=== PATIENT | female | born 1995 | race Caucasian/White ===

== ENCOUNTER 2021-07-27 22:22 | Day surgery (SDC) | payer BC ==
[2021-07-27] MEDS ORDERED: hydrALAZINE 20 MG/ML VIAL SLOW IVP PRN (22:38)
[2021-07-27 23:08] VITALS: BMI 39.6
[2021-07-27 23:27] LABS: #Monocytes 0.5 10x3/uL (0.0-1.1); #Neutrophils 4.2 10x3/uL (1.5-8.4); %Basophils 0.5 % (0.0-2.0); %Eosinophils 0.4 % (0.0-6.0); %Lymphocytes 34.8 % (18.0-47.0); %Monocytes 6.7 % (0.0-10.0); %Neutrophils 57.3 % (40.0-75.0); Hemoglobin 10.7 g/dL (12.0-15.5); Mean Corpuscular HGB CONC 32.1 g/dL (32.0-36.0); Mean Corpuscular Hemoglobin 25.3 pg (27.0-33.0); Mean Corpuscular Volume 78.7 fl (81.6-98.3); Mean Platelet Volume 11.9 fl (7.4-10.4); Platelet Count 233 10x3/uL (150-450); RBC Distribution Width 13.1 % (11.5-14.5); Red Blood Cell (RBC) Count 4.23 10x6/uL (3.90-5.03); White Blood Cell (WBC) Count 7.3 10x3/uL (3.5-10.5)
[2021-07-27 23:35] LABS: ALT (SGPT) 7 U/L (8-55); AST (SGOT) 14 U/L (5-34); Albumin 3.2 g/dL (3.5-5.0); Alkaline Phosphatase 110 U/L (40-110); Anion Gap 14 mmol/L (10-20); BUN (Urea Nitrogen) 10 mg/dL (7.0-18.7); Bilirubin, Total 0.3 mg/dL (0.2-1.2); Calc. Creatinine Clearance 205 mL/min (70-130); Calcium 8.8 mg/dL (7.8-10.44); Carbon Dioxide 19 mmol/L (22-29); Chloride 107 mmol/L (98-107); Globulin 2.9 g/dL (2.4-3.5); Glucose 90 mg/dL (70-105); Potassium 4.1 mmol/L (3.5-5.1); Protein, Total 6.1 g/dL (6.0-8.3); Sodium 136 mmol/L (136-145)
== END 2021-07-28 00:20 | disposition home or self-care (01) ==
LOC: CSHLD/OP 22:22
PROVIDERS: ATTEND Obstetrics & Gynecology
DX: O99.891 Other specified diseases and conditions complicating pregnancy (principal); R03.0 Elevated blood-pressure reading, without diagnosis of hypertension; M79.89 Other specified soft tissue disorders; Z3A.35 35 weeks gestation of pregnancy; Z91.040 Latex allergy status
CPT/HCPCS: 80053; 82570; 84156; 85025; 99283

== ENCOUNTER 2021-08-20 16:50 | Inpatient (IN) | payer BC ==
[~2021-08-20 16:50] MED LIST: Bupivacaine 0.25% HCL 30 ML VIAL ONE; Lidocaine 2% 10 ML INJ ONE; ePHEDrine Sulfate 50 MG/10 ML VIAL ONE
[2021-08-20 17:28] VITALS: BMI 40.4
[2021-08-20] MEDS ORDERED: hydrALAZINE 20 MG/ML VIAL ONE (17:47)
[2021-08-20] MEDS ORDERED: Magnesium Sulfate 20 gm/500 ml 20 GM/500 ML BAG ONE (17:54)
[2021-08-20] MEDS ORDERED: Ondansetron PF 4 MG/2 ML Vial IVP PRN (17:56)
[2021-08-20] MEDS ORDERED: HYDROcodone/Acetaminophen 5/325 mg Tablet PO PRN (17:56)
[2021-08-20] MEDS ORDERED: Calcium Gluc 4.6 MEQ/10 ML (100 MG/ML) SLOW IVP PRN (17:56)
[2021-08-20] MEDS ORDERED: Ibuprofen 800 MG TAB PO PRN (17:56)
[2021-08-20] MEDS ORDERED: Methylergonovine 0.2 MG/ML VIAL IM PRN (17:56)
[2021-08-20] MEDS ORDERED: Carboprost 250 MCG/ML AMP IM PRN (17:56)
[2021-08-20] MEDS ORDERED: Misoprostol 200 MCG TAB PR PRN (17:56)
[2021-08-20] MEDS ORDERED: Promethazine HCl 25 MG/ML VIAL IM PRN (17:56)
[2021-08-20] MEDS ORDERED: hydrALAZINE 20 MG/ML VIAL SLOW IVP PRN ×2 (17:56)
[2021-08-20] MEDS ORDERED: Acetaminophen 500 MG TAB PO PRN (17:56)
[2021-08-20] MEDS ORDERED: Zolpidem Tartrate 5 MG TAB PO PRN (17:56)
[2021-08-20] MEDS ORDERED: Lidocaine 1% (PF) 30 ML VIAL SC PRN (17:56)
[2021-08-20] MEDS ORDERED: Labetalol HCl 100 MG/20 ML VIAL SLOW IVP PRN ×3 (17:56)
[2021-08-20] MEDS ORDERED: Lorazepam 2 MG/ML VIAL SLOW IVP PRN (17:56)
[2021-08-20] MEDS ORDERED: Diphenoxylate HCl/Atropine Tablet PO PRN (17:56)
[2021-08-20] MEDS: Magnesium Sulfate 20 gm/500 ml 20 GM/500 ML BAG IVPB SCH (18:00)
[2021-08-20] MEDS ORDERED: NS w/ Oxytocin 30 units 500 ML IV SCH ×2 (18:00)
[2021-08-20 18:52] LABS: Hemoglobin 11.1 g/dL (12.0-15.5); Mean Corpuscular HGB CONC 32.3 g/dL (32.0-36.0); Mean Corpuscular Hemoglobin 24.8 pg (27.0-33.0); Platelet Count 259 10x3/uL (150-450); Red Blood Cell (RBC) Count 4.47 10x6/uL (3.90-5.03); White Blood Cell (WBC) Count 8.5 10x3/uL (3.5-10.5)
[2021-08-20 19:02] LABS: ALT (SGPT) Less than 6 U/L (8-55); AST (SGOT) 12 U/L (5-34); Albumin 3.4 g/dL (3.5-5.0); Alkaline Phosphatase 122 U/L (40-110); Anion Gap 16 mmol/L (10-20); BUN (Urea Nitrogen) 10 mg/dL (7.0-18.7); Bilirubin, Total 0.4 mg/dL (0.2-1.2); Calc. Creatinine Clearance 183 mL/min (70-130); Calcium 9.4 mg/dL (7.8-10.44); Carbon Dioxide 20 mmol/L (22-29); Chloride 102 mmol/L (98-107); Estimated GFR 119; Globulin 3.3 g/dL (2.4-3.5); Glucose 89 mg/dL (70-105); Potassium 5.2 mmol/L (3.5-5.1); Protein, Total 6.7 g/dL (6.0-8.3); Sodium 133 mmol/L (136-145)
[2021-08-20 19:21] LABS: Syphilis Antibody Nonreactive (Nonreactive); Syphilis Antibody Index 0.06 S/CO (<1.00 Non-Reactive)
[2021-08-20 19:23] LABS: Hep B Surf Ag Non-Reactive S/CO (NonReactive)
[2021-08-20 19:28] LABS: HBSAg Index 0.21 S/CO (0-0.99)
[2021-08-20 20:09] LABS: SARS-CoV-2 NAA Rapid Test Not Detected (NotDetected)
[2021-08-20 20:11] LABS: Creatinine, Urine 67.54 mg/dL (47-110)
[2021-08-20] MEDS: Misoprostol 100 MCG TAB VAG SCH (20:57)
[2021-08-20] MEDS: Butorphanol Tartrate 1 MG/ML VIAL SLOW IVP PRN (22:56)
[2021-08-20] MEDS ORDERED: Fentanyl 2 mcg/Bup 0.1% Cadd 100 ML ONE (23:38)
[2021-08-21] MEDS: Misoprostol 100 MCG TAB VAG SCH ×2 (00:05→03:30)
[2021-08-21] MEDS: Butorphanol Tartrate 1 MG/ML VIAL SLOW IVP PRN ×2 (00:13→03:59)
[2021-08-21] MEDS: Magnesium Sulfate 20 gm/500 ml 20 GM/500 ML BAG IVPB SCH ×3 (02:30→21:18)
[2021-08-21] MEDS: Lactated Ringer's 1,000 ML IV SCH ×2 (06:01→10:22)
[2021-08-21] MEDS ORDERED: Acetaminophen 325 MG TAB PO PRN ×2 (09:17→20:24)
[2021-08-21] MEDS ORDERED: Moisturizing Cream (Eucerin) 113 GM JAR TOP PRN ×2 (09:17→15:19)
[2021-08-21] MEDS ORDERED: Promethazine HCl 25 MG/ML VIAL IM PRN ×2 (09:17→15:19)
[2021-08-21] MEDS ORDERED: Lactated Ringer's 500 ML IV PRN (09:17)
[2021-08-21] MEDS ORDERED: ePHEDrine Sulfate 50 MG/10 ML VIAL SLOW IVP PRN (09:17)
[2021-08-21] MEDS ORDERED: Ondansetron PF 4 MG/2 ML Vial IVP PRN ×3 (09:17→20:24)
[2021-08-21] MEDS ORDERED: Naloxone HCl 0.4 mg/ml Vial IVP PRN ×4 (09:17→15:19)
[2021-08-21] MEDS ORDERED: diphenhydrAMINE 50 MG/ML VIAL IVP PRN ×2 (09:17→15:19)
[2021-08-21] MEDS ORDERED: ePHEDrine Sulfate 50 MG/10 ML VIAL ONE (09:23)
[2021-08-21] MEDS ORDERED: Fentanyl 2 mcg/Bupivacaine 0.1% Cassette 100 ML EPIDURAL SCH (09:30)
[2021-08-21] MEDS ORDERED: Communication Order-Pharmacy FS SCH ×2 (09:30→15:30)
[2021-08-21] MEDS ORDERED: Famotidine/PF 20 mg/2ml Vial SLOW IVP PRN (14:03)
[2021-08-21] MEDS ORDERED: Bicitra 30 ML UDCUP PO PRN (14:03)
[2021-08-21] MEDS ORDERED: CEFAZOLIN 2 GM VIAL ONE (14:13)
[2021-08-21] MEDS ORDERED: ceFAZolin 2 GM/Dextrose 50 ML 2 GM in Premix Bag 1 BAG IVPB SCH (14:15)
[2021-08-21] MEDS ORDERED: Azithromycin 500 MG in Sodium Chloride 0.9% 250 ML 250 ML IVPB SCH (14:15)
[2021-08-21] MEDS ORDERED: Morphine PF 10 MG/10 ML VIAL ONE (14:25)
[2021-08-21] MEDS ORDERED: PHENYLEPHRINE-NS 100 MCG/ML 10 ML SYRINGE ONE ×2 (14:28→14:58)
[2021-08-21] MEDS ORDERED: Oxytocin 10 UNITS/ML VIAL ONE (14:28)
[2021-08-21] MEDS ORDERED: Misoprostol 200 MCG TAB ONE (14:44)
[2021-08-21] MEDS ORDERED: Carboprost 250 MCG/ML AMP ONE (14:44)
[2021-08-21] MEDS ORDERED: Ketorolac Tromethamine 30 MG/ML VIAL ONE (14:57)
[2021-08-21] MEDS ORDERED: HYDROmorphone 2 MG/ML VIAL SLOW IVP PRN (15:19)
[2021-08-21] MEDS ORDERED: Ondansetron PF 4 MG/2 ML Vial ONE (15:19)
[2021-08-21] MEDS ORDERED: Promethazine HCl 25 MG SUPP PR PRN (15:19)
[2021-08-21] MEDS ORDERED: Ondansetron HCl/PF 4 MG/2 ML Vial IVP PRN (15:19)
[2021-08-21] MEDS ORDERED: Meperidine HCl/PF 25 MG/ML VIAL SLOW IVP PRN (15:19)
[2021-08-21] MEDS ORDERED: Naloxone HCl 0.4 mg/ml Vial IV PRN (15:19)
[2021-08-21] MEDS ORDERED: Fentanyl 100 MCG/2 ML VIAL SLOW IVP PRN (15:19)
[2021-08-21] MEDS ORDERED: Diphenoxylate HCl/Atropine Tablet PO SCH (15:30)
[2021-08-21] MEDS ORDERED: Ketorolac Tromethamine 30 MG/ML VIAL IVP SCH (15:30)
[2021-08-21] MEDS ORDERED: Calcium Carbonate 500 MG ChewTAB PO PRN (16:07)
[2021-08-21] MEDS ORDERED: Calcium Carbonate 500 MG ChewTAB PO SCH (17:00)
[2021-08-21] MEDS ORDERED: Fentanyl 100 MCG/2 ML VIAL ONE (17:56)
[2021-08-21] MEDS: Ketorolac Tromethamine 30 MG/ML VIAL IVP PRN (19:52)
[2021-08-21] MEDS ORDERED: diphenhydrAMINE 25 MG CAP PO PRN (20:24)
[2021-08-21] MEDS ORDERED: Bisacodyl 10 MG SUPP PR PRN (20:24)
[2021-08-21] MEDS ORDERED: hydrALAZINE 20 MG/ML VIAL SLOW IVP PRN (20:24)
[2021-08-21] MEDS ORDERED: Calcium Gluc 4.6 MEQ/10 ML (100 MG/ML) SLOW IVP PRN (20:24)
[2021-08-21] MEDS ORDERED: Lanolin Ointment 7 GM TUBE TOP PRN (20:24)
[2021-08-21] MEDS ORDERED: Boostrix 0.5 ML (Tdap) VIAL IM ONE (20:24)
[2021-08-22] MEDS ORDERED: HYDROmorphone 2 MG/ML VIAL SLOW IVP PRN (01:46)
[2021-08-22] MEDS ORDERED: Fentanyl 100 MCG/2 ML VIAL SLOW IVP PRN (01:46)
[2021-08-22] MEDS: Ketorolac Tromethamine 30 MG/ML VIAL IVP PRN (02:11)
[2021-08-22] MEDS: Lactated Ringer's 1,000 ML IV SCH (02:18)
[2021-08-22] MEDS ORDERED: Lorazepam 2 MG/ML VIAL SLOW IVP PRN (03:30)
[2021-08-22] MEDS ORDERED: HYDROcodone/Acetaminophen 5/325 mg Tablet PO PRN (03:30)
[2021-08-22 05:00] LABS: Hemoglobin 8.2 g/dL (12.0-15.5); Mean Corpuscular HGB CONC 32.2 g/dL (32.0-36.0); Mean Corpuscular Hemoglobin 24.5 pg (27.0-33.0); Mean Corpuscular Volume 76.1 fl (81.6-98.3); Mean Platelet Volume 10.3 fl (7.4-10.4); Platelet Count 194 10x3/uL (150-450); RBC Distribution Width 14.3 % (11.5-14.5); Red Blood Cell (RBC) Count 3.35 10x6/uL (3.90-5.03); White Blood Cell (WBC) Count 7.6 10x3/uL (3.5-10.5)
[2021-08-22] MEDS: HYDROcodone/Acetaminophen 5/325 mg Tablet PO PRN ×4 (05:30→20:15)
[2021-08-22] MEDS: Magnesium Sulfate 20 gm/500 ml 20 GM/500 ML BAG IVPB SCH (06:32)
[2021-08-22] MEDS: Prenatal Vitamin 1 TAB PO SCH (09:31)
[2021-08-22] MEDS: Docusate 100 MG CAP PO SCH ×3 (09:31→21:02)
[2021-08-22] MEDS: Ferrous Sulfate 325 MG TAB PO SCH ×3 (09:31→21:02)
[2021-08-22] MEDS: Ibuprofen 800 MG TAB PO SCH ×2 (10:45→18:54)
[2021-08-22] MEDS: Simethicone Chewable 80 MG TAB PO PRN (21:02)
[2021-08-23] MEDS: HYDROcodone/Acetaminophen 5/325 mg Tablet PO PRN ×2 (00:17→06:16)
[2021-08-23] MEDS: Ibuprofen 800 MG TAB PO SCH ×3 (02:38→18:04)
[2021-08-23] MEDS: Simethicone Chewable 80 MG TAB PO PRN ×2 (07:12→10:47)
[2021-08-23] MEDS: Prenatal Vitamin 1 TAB PO SCH (09:26)
[2021-08-23] MEDS: Ferrous Sulfate 325 MG TAB PO SCH (09:26)
[2021-08-23] MEDS: Docusate 100 MG CAP PO SCH (09:27)
[2021-08-23 13:40] VITALS: BP 132/68; TEMP 98.2
== END 2021-08-23 18:15 | disposition home or self-care (01) | DRG 788 ==
LOC: CSHLD/OP 16:50 → CSHTELE 18:22 → CSHLD 19:09 → CSHPP 08-22 17:00
PROVIDERS: ADMIT Family Medicine; ATTEND Student in an Organized Health Care Education/Training Program
PROC: 10D00Z1 Extraction of Products of Conception, Low, Open Approach (ICD-10-PCS; principal; 2021-08-21)
PROC: 3E0334Z Introduction of Serum, Toxoid and Vaccine into Peripheral Vein, Percutaneous Approach (ICD-10-PCS; 2021-08-21)
PROC: 10907ZC Drainage of Amniotic Fluid, Therapeutic from Products of Conception, Via Natural or Artificial Opening (ICD-10-PCS; 2021-08-21)
PROC: 3E033VJ Introduction of Other Hormone into Peripheral Vein, Percutaneous Approach (ICD-10-PCS; 2021-08-21)
DX: O14.14 Severe pre-eclampsia complicating childbirth (principal); Z3A.39 39 weeks gestation of pregnancy; Z37.0 Single live birth; Z20.822 Contact with and (suspected) exposure to COVID-19; O26.893 Other specified pregnancy related conditions, third trimester; Z67.11 Type A blood, Rh negative; O45.93 Premature separation of placenta, unspecified, third trimester; O76 Abnormality in fetal heart rate and rhythm complicating labor and delivery; O69.81X0 Labor and delivery complicated by cord around neck, without compression, not applicable or unspecified; Z91.040 Latex allergy status; F41.9 Anxiety disorder, unspecified; F32.A Depression, unspecified; O99.344 Other mental disorders complicating childbirth; Z79.82 Long term (current) use of aspirin
CPT/HCPCS: 36415; 51702; 80053; 82570; 84156; 85027; 85461; 86780; 86850; 86870; 86900; 86901; 87340; 88307; 90384; 96372; 99285; J0360; J0595; J1200; J1885; J2274; J2405; J2550; J2590; J3010; J3475; J3490; J7120; S0020; S0028; U0002

== ENCOUNTER 2022-04-18 16:28 | Emergency (ER) | payer BC, OTHER ==
[2022-04-18 17:09] LABS: Bilirubin Neg (Negative); Blood, Urine 250 (Negative); Clarity Clear (Clear); Glucose, Urine (Dipstick) Normal (Negative); Ketone, Urine Negative (Negative); Leukocyte 25 (Negative); Nitrite Negative (Negative); Protein, Urine (Dipstick) Negative (Neg-Trace); Specific Gravity, Urine 1.015 (1.005-1.030); Urobilinogen Normal mg/dL (Less than 2)
[2022-04-18 17:10] LABS: Pregnancy Test - Urine (BHCG) POSITIVE (Negative); Pregu Control Bar Appear? YES (CONTROL BAR); Specific Gravity 1.015 (1.002-1.036)
[2022-04-18 17:11] LABS: Pregu Control Background? CLEAR/WHITE (CLR/WHITE)
[2022-04-18 17:17] LABS: #Basophils 0.1 10x3/uL (0.0-0.2); #Eosinphils 0.1 10x3/uL (0.0-0.5); #Monocytes 0.4 10x3/uL (0.0-1.1); #Neutrophils 3.3 10x3/uL (1.5-8.4); %Basophils 0.8 % (0.0-2.0); %Eosinophils 1.8 % (0.0-6.0); %Lymphocytes 36.2 % (18.0-47.0); %Monocytes 6.3 % (0.0-10.0); %Neutrophils 54.7 % (40.0-75.0); Hemoglobin 10.7 g/dL (12.0-15.5); Mean Corpuscular HGB CONC 30.2 g/dL (32.0-36.0); Mean Corpuscular Hemoglobin 22.2 pg (27.0-33.0); Mean Corpuscular Volume 73.4 fl (81.6-98.3); Platelet Count 298 10x3/uL (150-450); RBC Distribution Width 15.9 % (11.5-14.5); Red Blood Cell (RBC) Count 4.82 10x6/uL (3.90-5.03)
[2022-04-18] MEDS ORDERED: Acetaminophen 325 MG TAB ONE (17:19)
[2022-04-18 17:28] LABS: Anion Gap 15 mmol/L (10-20); BUN (Urea Nitrogen) 12 mg/dL (7.0-18.7); Calc. Creatinine Clearance 0 mL/min (70-130); Calcium 9.2 mg/dL (7.8-10.44); Carbon Dioxide 22 mmol/L (22-29); Chloride 106 mmol/L (98-107); Estimated GFR 113; Glucose 112 mg/dL (70-105); Magnesium 1.7 mg/dL (1.6-2.6); Potassium 3.9 mmol/L (3.5-5.1); Sodium 139 mmol/L (136-145)
[2022-04-18 17:46] LABS: Bacteria/HPF Rare-Few HPF (None Seen); Squamous Epithelial 0-3 HPF (0-3); WBC/HPF 0-3 HPF (0-3)
== END 2022-04-18 18:42 | disposition home or self-care (01) ==
LOC: CSHERS 16:28
DX: O20.0 Threatened abortion (principal); Z3A.01 Less than 8 weeks gestation of pregnancy
CPT/HCPCS: 76856; 80048; 81003; 81015; 81025; 83735; 84702; 85025; 86900; 86901; 90384; 96372

== ENCOUNTER 2022-12-25 21:21 | Day surgery (SDC) | payer BC ==
[2022-12-25 22:02] VITALS: BMI 40.6
[2022-12-25] MEDS ORDERED: hydrALAZINE 20 MG/ML VIAL SLOW IVP PRN (22:32)
[2022-12-25 23:11] LABS: #Monocytes 0.5 10x3/uL (0.0-1.1); #Neutrophils 5.3 10x3/uL (1.5-8.4); %Basophils 0.2 % (0.0-2.0); %Eosinophils 0.2 % (0.0-6.0); %Lymphocytes 28.5 % (18.0-47.0); %Neutrophils 64.9 % (40.0-75.0); Hematocrit 29.7 % (34.9-44.5); Hemoglobin 9.3 g/dL (12.0-15.5); Mean Corpuscular HGB CONC 31.3 g/dL (32.0-36.0); Mean Corpuscular Volume 73.3 fl (81.6-98.3); Mean Platelet Volume 11.2 fl (7.4-10.4); Platelet Count 243 10x3/uL (150-450); RBC Distribution Width 14.4 % (11.5-14.5); Red Blood Cell (RBC) Count 4.05 10x6/uL (3.90-5.03); White Blood Cell (WBC) Count 8.2 10x3/uL (3.5-10.5)
[2022-12-25 23:24] LABS: ALT (SGPT) Less than 7 U/L (8-55); AST (SGOT) 12 U/L (5-34); Alkaline Phosphatase 101 U/L (40-110); Anion Gap 14 mmol/L (10-20); BUN (Urea Nitrogen) 9 mg/dL (7.0-18.7); Bilirubin, Total 0.4 mg/dL (0.2-1.2); Calc. Creatinine Clearance 197 mL/min (70-130); Calcium 8.3 mg/dL (7.8-10.44); Carbon Dioxide 18 mmol/L (22-29); Chloride 105 mmol/L (98-107); Estimated GFR 123; Glucose 96 mg/dL (70-105); Potassium 3.5 mmol/L (3.5-5.1); Sodium 133 mmol/L (136-145)
[2022-12-25 23:28] LABS: Fetal Membranes Rupture No Membranes Rupture (No Rupture)
[2022-12-25 23:29] LABS: Microcytosis SLIGHT = 6-15 cells (100X) (0-5/hpf); Platelet Adequacy Comment Appears Adequate
== END 2022-12-26 00:29 | disposition home or self-care (01) ==
LOC: CSHLD/OP 21:21
PROVIDERS: ATTEND Obstetrics & Gynecology
DX: O47.03 False labor before 37 completed weeks of gestation, third trimester (principal); O41.8X30 Other specified disorders of amniotic fluid and membranes, third trimester, not applicable or unspecified; Z3A.35 35 weeks gestation of pregnancy; Z91.040 Latex allergy status
CPT/HCPCS: 36415; 80053; 82570; 84112; 84156; 85025; 99283

== ENCOUNTER → 2023-01-06 15:30 | Inpatient (IN) | payer BC, OTHER ==
[2023-01-04 13:20] VITALS: BMI 41.5
[2023-01-04 14:44] LABS: Hematocrit 33.8 % (34.9-44.5); Hemoglobin 10.3 g/dL (12.0-15.5); Mean Corpuscular HGB CONC 30.5 g/dL (32.0-36.0); Mean Corpuscular Hemoglobin 22.2 pg (27.0-33.0); Mean Corpuscular Volume 72.8 fl (81.6-98.3); Mean Platelet Volume 11.2 fl (7.4-10.4); Platelet Count 302 10x3/uL (150-450); RBC Distribution Width 14.7 % (11.5-14.5); Red Blood Cell (RBC) Count 4.64 10x6/uL (3.90-5.03); White Blood Cell (WBC) Count 7.5 10x3/uL (3.5-10.5)
[2023-01-04 14:54] LABS: ALT (SGPT) Less than 7 U/L (8-55); AST (SGOT) 12 U/L (5-34); Albumin 3.5 g/dL (3.5-5.0); Alkaline Phosphatase 145 U/L (40-110); Anion Gap 15 mmol/L (10-20); BUN (Urea Nitrogen) 9 mg/dL (7.0-18.7); Bilirubin, Total 0.5 mg/dL (0.2-1.2); Calc. Creatinine Clearance 202 mL/min (70-130); Calcium 8.8 mg/dL (7.8-10.44); Carbon Dioxide 19 mmol/L (22-29); Chloride 106 mmol/L (98-107); Estimated GFR 123; Glucose 80 mg/dL (70-105); Potassium 4.2 mmol/L (3.5-5.1); Protein, Total 6.5 g/dL (6.0-8.3); Sodium 136 mmol/L (136-145)
[2023-01-04 15:17] LABS: Syphilis Antibody Nonreactive (Nonreactive); Syphilis Antibody Index 0.05 S/CO (<1.00 Non-Reactive)
[2023-01-04 15:22] LABS: HBSAg Index 0.16 S/CO (0-0.99); Hep B Surf Ag - L&D Non-Reactive S/CO (NonReactive)
[2023-01-04] MEDS: Lactated Ringer's 1,000 ML IV SCH (15:45)
[2023-01-05] MEDS: Ketorolac Tromethamine 30 MG/ML VIAL IVP PRN ×4 (00:34→19:00)
[2023-01-05] MEDS: Docusate 100 MG CAP PO SCH ×3 (02:54→21:01)
[2023-01-05] MEDS: Ferrous Sulfate 325 MG TAB PO SCH ×3 (02:54→20:59)
[2023-01-05] MEDS: Lactated Ringer's 1,000 ML IV SCH ×4 (02:54→21:22)
[2023-01-05 04:25] LABS: Hematocrit 26.1 % (34.9-44.5); Mean Corpuscular HGB CONC 30.7 g/dL (32.0-36.0); Mean Corpuscular Hemoglobin 22.2 pg (27.0-33.0); Mean Corpuscular Volume 72.5 fl (81.6-98.3); Mean Platelet Volume 11.6 fl (7.4-10.4); Platelet Count 250 10x3/uL (150-450); RBC Distribution Width 14.6 % (11.5-14.5); White Blood Cell (WBC) Count 9.2 10x3/uL (3.5-10.5)
[2023-01-05] MEDS: HYDROcodone/Acetaminophen 5/325 mg Tablet PO PRN ×3 (08:48→21:21)
[2023-01-06] MEDS: Ibuprofen 800 MG TAB PO SCH ×2 (03:29→09:21)
[2023-01-06] MEDS: Lactated Ringer's 1,000 ML IV SCH (07:37)
[2023-01-06 08:49] VITALS: BP 129/74; TEMP 98.9
[2023-01-06] MEDS: HYDROcodone/Acetaminophen 5/325 mg Tablet PO PRN ×2 (09:20→14:43)
[2023-01-06] MEDS: Docusate 100 MG CAP PO SCH (09:21)
[2023-01-06] MEDS: Ferrous Sulfate 325 MG TAB PO SCH (09:21)
[~2023-01-06 15:30] MED LIST changes: +Acetaminophen 500 MG TAB PO PRN; +Bicitra 30 ML UDCUP PO PRN; +Boostrix 0.5 ML (Tdap) VIAL (>/=7 yrs of age) IM ONE; -Bupivacaine 0.25% HCL 30 ML VIAL ONE; +CEFAZOLIN 2 GM in Sodium Chloride 0.9% 100 ML IVPB SCH; +Calcium Gluc 4.6 MEQ/10 ML (100 MG/ML) SLOW IVP PRN; +Carboprost 250 MCG/ML AMP IM PRN; +Communication Order-Pharmacy FS SCH; +Dexamethasone 4 mg/ml Vial ONE; +Diphenoxylate HCl/Atropine Tablet PO PRN; +Erythromycin Base 0.5% Oint 1 GM TUBE ONE; +Famotidine/PF 20 mg/2ml Vial SLOW IVP PRN; +HYDROmorphone 0.5 MG/0.5 ML SYRINGE SLOW IVP PRN; +HYDROmorphone 2 MG/ML VIAL SLOW IVP PRN; +Hepatitis B Vaccine 10 MCG/0.5 ML SYR ONE; +Ibuprofen 800 MG TAB PO SCH; +Ketorolac Tromethamine 30 MG/ML VIAL IVP PRN; +Ketorolac Tromethamine 30 MG/ML VIAL IVP SCH; +Labetalol HCl 100 MG/20 ML VIAL SLOW IVP PRN; -Lidocaine 2% 10 ML INJ ONE; +Lorazepam 2 MG/ML VIAL SLOW IVP PRN; +Meperidine HCl/PF 25 MG/ML VIAL SLOW IVP PRN; +Misoprostol 200 MCG TAB PR PRN; +Moisturizing Cream (Eucerin) 113 GM JAR TOP PRN; +Morphine PF 10 MG/10 ML VIAL ONE; +Naloxone HCl 0.4 mg/ml Vial IV PRN; +Naloxone HCl 0.4 mg/ml Vial IVP PRN; +Ondansetron HCl/PF 4 MG/2 ML Vial IVP PRN; +Ondansetron PF 4 MG/2 ML Vial IVP PRN; +Ondansetron PF 4 MG/2 ML Vial ONE; +Oxytocin 10 UNITS/ML VIAL ONE; +Oxytocin 30 units/NS 500 ML 500 ML IV SCH; +Phenylephrine 40 MG/NS 250 ML 250 ML ONE; +Phytonadione Neonatal 1 MG/0.5 ML AMP ONE; +Promethazine HCl 25 MG SUPP PR PRN; +Promethazine HCl 25 MG/ML VIAL IM PRN; +Simethicone Chewable 80 MG TAB PO PRN; +Tranexamic Acid 1,000 MG/10 ML VIAL IVP PRN; +diphenhydrAMINE 50 MG/ML VIAL IVP PRN; +fentaNYL 50 mcg/mL 1 mL Vial ONE; +fentaNYL 50 mcg/mL 1 mL Vial SLOW IVP PRN; +hydrALAZINE 20 MG/ML VIAL SLOW IVP PRN
== END | disposition home or self-care (01) | DRG 787 ==
LOC: CSHLD 01-04 11:51 → CSHPED 01-04 23:38
PROVIDERS: ADMIT Obstetrics & Gynecology; ATTEND Obstetrics & Gynecology
PROC: 10D00Z1 Extraction of Products of Conception, Low, Open Approach (ICD-10-PCS; principal; 2023-01-04)
PROC: 3E0234Z Introduction of Serum, Toxoid and Vaccine into Muscle, Percutaneous Approach (ICD-10-PCS; 2023-01-05)
DX: O34.211 Maternal care for low transverse scar from previous cesarean delivery (principal); O36.0930 Maternal care for other rhesus isoimmunization, third trimester, not applicable or unspecified; Z37.0 Single live birth; Z3A.37 37 weeks gestation of pregnancy; O13.4 Gestational [pregnancy-induced] hypertension without significant proteinuria, complicating childbirth; D50.9 Iron deficiency anemia, unspecified; Z91.040 Latex allergy status; O90.81 Anemia of the puerperium
CPT/HCPCS: 51702; 80053; 85027; 85461; 86780; 86850; 86900; 86901; 87340; 90384; 96372; J1100; J1200; J1885; J2274; J2405; J2590; J3010; J3490; J7120; S0028

== ENCOUNTER 2023-01-07 16:23 | Inpatient (IN) | payer OTHER ==
[2023-01-07 17:24] VITALS: BMI 37.8
[2023-01-07] MEDS ORDERED: Ibuprofen 800 MG TAB PO SCH (17:30)
[2023-01-07 18:17] LABS: Creatinine, Urine 74.72 mg/dL (47-110)
[2023-01-07 18:33] LABS: Hematocrit 28.3 % (34.9-44.5); Hemoglobin 8.4 g/dL (12.0-15.5); Mean Corpuscular HGB CONC 29.7 g/dL (32.0-36.0); Mean Corpuscular Volume 74.1 fl (81.6-98.3); Mean Platelet Volume 10.8 fl (7.4-10.4); Platelet Count 254 10x3/uL (150-450); Red Blood Cell (RBC) Count 3.82 10x6/uL (3.90-5.03)
[2023-01-07 18:38] LABS: RBC/HPF 21-50 HPF (0-3)
[2023-01-07 18:39] LABS: Renal Epithelial 0-3 HPF (None Seen); Transitional Epithelial 0-3 HPF (None Seen)
[2023-01-07 18:40] LABS: Bacteria/HPF 1+ HPF (None Seen)
[2023-01-07] MEDS ORDERED: Calcium Gluc 4.6 MEQ/10 ML (100 MG/ML) SLOW IVP PRN (19:35)
[2023-01-07] MEDS ORDERED: Labetalol HCl 100 MG/20 ML VIAL SLOW IVP PRN (19:35)
[2023-01-07] MEDS ORDERED: hydrALAZINE 20 MG/ML VIAL SLOW IVP PRN (19:35)
[2023-01-07] MEDS ORDERED: Lorazepam 2 MG/ML VIAL SLOW IVP PRN (19:35)
[2023-01-07] MEDS ORDERED: Magnesium Sulfate 20 gm/500 ml 20 GM/500 ML BAG ONE (19:39)
[2023-01-07] MEDS ORDERED: diphenhydrAMINE 50 MG/ML VIAL IVP SCH (19:45)
[2023-01-07] MEDS ORDERED: Magnesium Sulfate 20 gm/500 ml 20 GM/500 ML BAG IVPB SCH (19:45)
[2023-01-07] MEDS ORDERED: Metoclopramide HCl 10 MG/2 ML VIAL IVP SCH (19:45)
[2023-01-07] MEDS ORDERED: NIFEdipine XL 30 MG ER.TAB PO SCH (20:00)
[2023-01-07] MEDS ORDERED: Lactated Ringer's 1,000 ML IV SCH (20:30)
[2023-01-07 23:14] LABS: ALT (SGPT) Less than 7 U/L (8-55); AST (SGOT) 13 U/L (5-34); Albumin 2.8 g/dL (3.5-5.0); Alkaline Phosphatase 93 U/L (40-110); Anion Gap 15 mmol/L (10-20); BUN (Urea Nitrogen) 6 mg/dL (7.0-18.7); Bilirubin, Total 0.3 mg/dL (0.2-1.2); Calc. Creatinine Clearance 198 mL/min (70-130); Calcium 8.1 mg/dL (7.8-10.44); Carbon Dioxide 20 mmol/L (22-29); Chloride 108 mmol/L (98-107); Estimated GFR 126; Globulin 2.7 g/dL (2.4-3.5); Glucose 83 mg/dL (70-105); Potassium 3.6 mmol/L (3.5-5.1); Protein, Total 5.5 g/dL (6.0-8.3); Sodium 139 mmol/L (136-145)
[2023-01-08] MEDS: Acetaminophen 500 MG TAB PO PRN ×3 (04:12→19:39)
[2023-01-08] MEDS ORDERED: diphenhydrAMINE 50 MG/ML VIAL IVP SCH (05:00)
[2023-01-08] MEDS ORDERED: Metoclopramide HCl 10 MG/2 ML VIAL IVP SCH (05:00)
[2023-01-08] MEDS: Lactated Ringer's 1,000 ML IV SCH ×2 (06:04→16:08)
[2023-01-08] MEDS: Ibuprofen 800 MG TAB PO PRN ×2 (08:51→16:43)
[2023-01-08] MEDS ORDERED: NIFEdipine XL 30 MG ER.TAB PO SCH ×3 (09:00→10:15)
[2023-01-08] MEDS ORDERED: NIFEdipine 10 MG CAP ONE (10:16)
[2023-01-08 12:17] LABS: Troponin I Less than 0.010 ng/mL (< 0.028)
[2023-01-08 12:23] LABS: Magnesium 3.5 mg/dL (1.6-2.6)
[2023-01-08] MEDS ORDERED: Labetalol HCl 200 MG TAB PO SCH ×2 (20:00→21:00)
[2023-01-08] MEDS: Labetalol HCl 200 MG TAB PO SCH (21:32)
[2023-01-09] MEDS: Lactated Ringer's 1,000 ML IV SCH ×2 (00:54→21:18)
[2023-01-09] MEDS: Acetaminophen 500 MG TAB PO PRN ×3 (03:08→22:08)
[2023-01-09] MEDS: Labetalol HCl 200 MG TAB PO SCH ×3 (08:45→20:47)
[2023-01-09] MEDS: Ibuprofen 800 MG TAB PO PRN (08:46)
[2023-01-09] MEDS: Ferrous Sulfate 325 MG TAB PO SCH ×2 (08:46→20:16)
[2023-01-09] MEDS: NIFEdipine XL 90 MG ER.TAB PO SCH (08:46)
[2023-01-09] MEDS: Docusate 100 MG CAP PO SCH ×2 (08:46→20:34)
[2023-01-09] MEDS ORDERED: Ondansetron PF 4 MG/2 ML Vial ONE (11:51)
[2023-01-09] MEDS ORDERED: Ondansetron HCl/PF 4 MG/2 ML Vial IVP PRN (12:29)
[2023-01-10] MEDS: NIFEdipine XL 90 MG ER.TAB PO SCH (08:25)
[2023-01-10] MEDS: Acetaminophen 500 MG TAB PO PRN (08:25)
[2023-01-10] MEDS: Labetalol HCl 200 MG TAB PO SCH (08:25)
[2023-01-10] MEDS: Ferrous Sulfate 325 MG TAB PO SCH (08:25)
[2023-01-10 12:26] VITALS: BP 126/75; TEMP 98.6
[2023-01-10] MEDS: Docusate 100 MG CAP PO SCH (13:46)
== END 2023-01-10 13:35 | disposition home or self-care (01) | DRG 776 ==
LOC: CSHLD/OP 16:23 → CSHLD 19:39 → CSHPP 01-09 20:58
PROVIDERS: ADMIT Obstetrics & Gynecology; ATTEND Obstetrics & Gynecology
DX: O14.15 Severe pre-eclampsia, complicating the puerperium (principal); Z91.040 Latex allergy status; O99.893 Other specified diseases and conditions complicating puerperium; R51.9 Headache, unspecified; R07.9 Chest pain, unspecified; O90.81 Anemia of the puerperium; D64.9 Anemia, unspecified
CPT/HCPCS: 36415; 71045; 80053; 81015; 82570; 83735; 83880; 84156; 84484; 85027; 93005; 93010; J0360; J1200; J2405; J2765; J3475; J7120